=== PATIENT | female | born 1970 | race Two or more races ===

== ENCOUNTER 2024-11-26 10:04 | Outpatient (RCR) | payer MEDICAID, SELFPAY ==
--- NOTE | 2024-11-26 10:00 | XR_ITS ---
Examination: HIDA, hepatobiliary radioisotope scan Gallbladder ejection fraction study. Date and time of exam: November 26, 2024, 1809 hours INDICATIONS: Stomachaches epigastric pain bloating gas heartburn and acid reflux months Technique: 5.8 mCi of 99M Hepatolite administered. Serial imaging then obtained from immediate through 60 minutes. 1.4 mcg selective catheter Kinevac administered for gallbladder ejection fraction study. Findings: Radioisotope activity within the liver is reasonably homogenous. Gallbladder, common bile duct small bowel activity noted Impression: Gallbladder activity Normal gallbladder ejection fraction 77%
== END 2024-12-01 23:59 | disposition home or self-care (01) ==
LOC: SNUC 10:04
PROVIDERS: PCP Nurse Practitioner Family; Referring Provider Specialist; Visit Provider Specialist
DX: R10.13 Epigastric pain (principal)
CPT/HCPCS: 78227; A9537; J2805